=== PATIENT | male | born 1995 | race Caucasian/White ===

== ENCOUNTER 2016-11-25 00:25 | Emergency (ER) | payer OTHER ==
[~2016-11-25 00:25] MED LIST: GUANFACINE HCL; LORATADINE PO; NASONEX17 GM; RISPERIDONE; SINGULAIR PO; STRATTERA; TENEX MT
== END 2016-11-25 02:00 | disposition left against medical advice (07) ==
LOC: CED 00:25
DX: Z53.21 Procedure and treatment not carried out due to patient leaving prior to being seen by health care provider (principal)